=== PATIENT | female | born 1985 | race Caucasian/White ===

== ENCOUNTER 2023-11-17 11:45 | Emergency (ER) | payer OTHER ==
[~2023-11-17] VITALS: Ht 162.6 cm; Wt 113.0 kg
[~2023-11-17 11:45] MED LIST: CLINDAMYCIN300 M1 PO; HYDROCO/APAP1 TA9 PO; MUPIROCIN21 TOP; NAPROXEN500 MG PO
[2023-11-17 11:58] VITALS: BP 133/92
[2023-11-17 12:00] VITALS: BP 146/102
[2023-11-17] MEDS ORDERED: CLINDAMYCIN HY300 MG PO (12:11)
[2023-11-17 12:21] VITALS: BP 155/87
[2023-11-17 12:25] VITALS: BP 155/87
== END 2023-11-17 12:25 | disposition home or self-care (01) ==
LOC: ED 11:45
DX: K08.89 Other specified disorders of teeth and supporting structures (principal); Z72.0 Tobacco use